=== PATIENT | male | born 1935 | race Caucasian/White ===

== ENCOUNTER 2022-07-10 21:35 | Emergency (ER) | payer MEDICARE ==
[~2022-07-10] VITALS: Ht 170.2 cm; Wt 56.7 kg
--- NOTE | 2022-07-10 22:09 | NUR ---
2135 - PT [facility] ER BED 10
--- NOTE | 2022-07-10 22:58 | NUR ---
PATIENT CAME TO THE HOSPITAL AFTER FUND UNRESPONSIVE BY NEIGHBORS AND THEY PLACED HIM ON THE FLOOR AND START CPR AT THE SAME TIME THEY CALL 911 AND SCLS CAME AND START CPR ACCORDING WITH [employer] PNEUDRAULICS REPAIRER THEY GAVE EPINEPHRINE 1 MG TO 10 000 AND BROGHT HIM TO [facility] DEPARTMENT AT 21.30 WHERE CODE BLUE START BY THE CHELSEA LAGUERRE BY DOCTOR URIEL CARSON THE CODE BLUE WAS NOT SUCCESFULL AND PATIENT WAS PRONOUNCED AT 21.45 OREILLY WAS CALL BY ME TALK WITH AGENT JIMMY NOT DETERMINATION YET WAITING FOR HER TO CALL ME BACK [facility] ONE WAS ALSO CALL I TALK TO STAFF [facility] REFERENCE NUMBER CC [id number]
--- NOTE | 2022-07-11 00:17 | NUR ---
CALL PATIENT SISTER SEVERAL TIMES TO GAVE REPORT ABOUT HIS BROTHER NOT BODY ANSWER SO FAR SISTER DEIRDRE Lal [facility] [place] TELE [phone] MESSAGE WAS LETS ON THE ANSWER MACHINE
--- NOTE | 2022-07-11 01:27 | NUR ---
I CALL AGAIN SISTER DEIRDRE BLANDKENNETH TELPHONE [phone] NOT ANSWERS I LETS ANOTHER MESSAGE ON THE ANSWER MACHINE
--- NOTE | 2022-07-11 05:01 | NUR ---
I CALL AGAIN TO THE TRUCK TRAILER MECHANIC AND AGENT JIMMY SAY THEY WE CALL ME LATER BECAUSE THEY ARE BUSY NOW IN ANOTHER CASE
--- NOTE | 2022-07-11 05:27 | NUR ---
I CALL DEIRDRE BLANDARGENIS AND INFORMED ABOUT THE OF HER BROTHER AND ALSO SHE GAVE ME HIS DAUGHTER PHONE TO INFORMED HER (MANJINDER MCCLENDON TELEPHONE [phone]) AND I CALLED HER BUT SHE DIDNT ANSWER AND LETS HER A MESSAGE AT THE ANSWER MACHINE ABOU ME TO REPEAT MY CALL TO TRY TO CONTACT HER AGAIN
--- NOTE | 2022-07-11 05:52 | NUR ---
I CALL DEVAUGHN ONE AGAIN BECAUSE WHEN I NOTIFIED THE FAMILY AND INFORME ABOUT THE OF MR FERNÁNDEZ THEY INFORMED ME THAT HIM DONATED HIS ENTIRE BODY TO THE [facility] TELEPHONE [phone]
--- NOTE | 2022-07-11 07:02 | NUR ---
PATIENT DAUGHTER MANJINDER CALL BACK AND INFORMED ABOUT HER FATHER
--- NOTE | 2022-07-11 07:33 | NUR ---
LOAN INTERVIEWER WARREN CALL AND SHE SAY THAT SHE IS COMING TO SEE THE BODY AT [phone]
--- NOTE | 2022-07-11 08:06 | NUR ---
MARIMAR PORRAS PLATE PUT IN WORKER CASE #[id number] AT BEDSIDE
--- NOTE | 2022-07-11 08:38 | NUR ---
[facility] TRANSPORT [facility] AT BEDSIDE
== END 2022-07-10 21:45 ==
LOC: MED 21:35
DX: I46.9 Cardiac arrest, cause unspecified (principal); I48.91 Unspecified atrial fibrillation; I71.9 Aortic aneurysm of unspecified site, without rupture
CPT/HCPCS: 31500; 92950; 99285